=== PATIENT | female | born 1945 | race Caucasian/White ===

== ENCOUNTER → 2019-02-11 | Outpatient (CLI) | payer MEDICARE, BC ==
[2019-02-11 10:20] VITALS: BP 127/78; PULSE 93; RESP 18; TEMP 98.2; BMI 31.7
--- NOTE | 2019-02-11 11:05 | P.GSHP ---
History of Present Illness H&P Date: 02/11/19 Chief Complaint: rash under left breast The patient is a 74-year-old white female who presents with a complaint of a rash under her left breast. She states the rash was persistent for approximately 6-7 months. She treated with calamine lotion, baking soda, pHisoHex, and finally was seen by her primary care physician where she was given nystatin. Despite the nystatin it did not resolve and she treated it with Chlortrimazole. Following the clotrimazole the itching stopped and the rash has resolved. She denies any thickening of the skin. Of importance is the fact that she is status post right mastectomy approximately 13 years ago. She does not complain of any lumps or masses in her left breast. Following the mastectomy she did not have any chemo or radiation therapy but she was on tamoxifen for 5 years. She did have reconstruction. She also had a reduction and lift of the left breast. Her last mammogram was in approximately March 2018 at [facility] and she states she was told that this was okay. Family history: 1. Patient right breast cancer 2. Multiple uterine cancer 3. Maternal cousin breast cancer Hormonal history: Menarche: 12 2 miscarriages,s, first born at 30 Menopause: Partial hysterectomy of 15 control pills: 2 years Hormones: 5 years Past surgical history: 1. Partial hysterectomy 2. Tonsillectomy 3. Appendectomy 4. 5. Umbilical hernia repair 6. Bilateral thumb surgery 7. Bilateral knee surgery 8. LAP-BAND 9. Ankle cyst Medical history: Type 1 diabetes 2 hypertension 3 high cholesterol Social history: Smoke: Negative Alcohol: Occasional Drugs: Negative - Constitutional Constitutional: Denies chills, Denies fever - EENT Eyes: denies blurred vision, denies pain Ears: bilateral: decreased hearing, tinnitus Ears, nose, mouth and throat: Denies headache, Denies sore throat - Breasts Breasts: bilateral: as per HPI - Cardiovascular Cardiovascular: Reports high blood pressure, Denies chest pain, Denies shortness of breath - Respiratory Respiratory: Denies cough, Denies 7 - Gastrointestinal Gastrointestinal: Denies abdominal pain, Denies diarrhea, Denies nausea, Denies vomiting - Genitourinary (Female) Genitourinary: Denies dysuria, Denies hematuria - Menstruation Menstruation: Reports post hysterectomy - Musculoskeletal Comment: Osteoarthritis - Integumentary Comment: rash under left breast resolved - Neurological Neurological: Denies numbness, Denies weakness - Psychiatric Psychiatric: Denies anxiety, Denies depression - Endocrine Comment: Diabetes - Hematologic/Lymphatic Comment: fish oil - Allergic/Immunologic Allergic/Immunologic: Reports seasonal allergies Past Medical History Past Medical History: Cancer, Diabetes Mellitus, Hypertension, Osteoarthritis (OA) Additional Past Medical History / Comment(s): hx. breast cancer 2006 History of Any Multi-Drug Resistant Organisms: None Reported Past Surgical History: Appendectomy, Bariatric Surgery, Breast Surgery, Section, Hernia Repair, Hysterectomy, Joint Replacement, Orthopedic Surgery, Tonsillectomy Additional Past Surgical History / Comment(s): right mastectomy & reconstruction, both knees replaced, lap band, D & C's, anal fissure repaired, cyst removed right ankle, left thumb surg. Past Anesthesia/Blood Transfusion Reactions: No Reported Reaction Past Psychological History: No Psychological Hx Reported Smoking Status: Unknown if ever smoked Past Alcohol Use History: None Reported Past Drug Use History: None Reported - Past Family History Mother Family Medical History: Cancer Medications and Allergies Home Medications Medication Instructions Recorded Confirmed Type Airborne 1 tab PO DAILY 02/12/16 02/11/19 History Calcium Carbonate/Vitamin D3 1 each PO DAILY 02/12/16 02/11/19 History [Calcium 600-Vit D3 400 Caplet] Cholecalciferol [Vitamin D3] 1,000 unit PO DAILY 02/12/16 02/11/19 History Glucosam/Shawn-Msm1/C/Singh/Bosw 1 each PO DAILY 02/12/16 02/11/19 History [Glucosamine-Chondroitin Tablet] Losartan Potassium [Cozaar] 50 mg PO DAILY 02/12/16 02/11/19 History Multivit with Calcium,Iron,Min 1 each PO DAILY 02/12/16 02/11/19 History [Women's Daily Multivitamin] Naproxen Sodium [Aleve] 220 mg PO DAILY 02/12/16 02/11/19 History metFORMIN HCL [Metformin HCl ER] 500 mg PO HS 02/12/16 02/11/19 History Atorvastatin [Lipitor] 10 mg PO HS 02/11/19 02/11/19 History Ranger-3/Dha/Epa/Fish Oil [Fish Oil 1 each PO DAILY 02/11/19 02/11/19 History 500 mg Softgel] Allergies Allergy/AdvReac Type Severity Reaction Status Date / Time TEODORO Inhibitors AdvReac Cough Unverified 02/11/19 09:54 Surgical - Exam Vital Signs Temp Pulse Resp BP Pulse Ox 98.2 F 93 18 127/78 97 02/11/19 10:14 02/11/19 10:14 02/11/19 10:14 02/11/19 10:14 02/11/19 10:14 - General well developed, well nourished, no distress - Eyes normal ocular movement - ENT no hearing loss, no congestion - Neck no masses, trachea midline - Respiratory normal respiratory effort, clear to auscultation - Cardiovascular Rhythm: regular Heart Sounds: normal: S1, S2 - Abdomen Abdomen: soft, non tender, no guarding, no rigid, no rebound - Integumentary Under left breast mild erythema according to patient rash has resolved - Neurologic no disoriented, no combative - Musculoskeletal normal gait, normal posture - Psychiatric oriented to time, oriented to person, oriented to place, speech is normal, memory intact Breast examination: Right breast: status post mastectomy with reconstruction no evidence of recurrent cancer Right insular: No adenopathy of concern Left breast: Fibrocystic changes inferior to the left breast is some mild pinkness of the skin which the where thepatient states a rash has resolved she has no itching at this site there is no definite rash of concern Multi-positional examination no dominant masses or nodules of concern Left axilla: No adenopathy of concern Assessment and Plan Assessment: Impression: 1. Type 1 diabetes 2 hypertension 3 high cholesterol 4. Resolved rash under her left breast, uncertain of the etiology 5. Personal history of right breast cancer with mastectomy and reconstruction, no evidence of recurrence 6. Family history of breast cancer 7. Fibrocystic breast changes 8. Family history of cancer mother: Uterine cancer Plan: 1. Close surveillance status post right mastectomy for cancer she is due for left mammogram she will have this performed at [facility] us if there is anything of concern she will see me immediately 2. The fashion of the left breast is resolved she will call if this recurs 3. Follow-up appointment here in the spring when she returns from [place] 4. Medical management of medical conditions CC: DR. Camp
== END ==
LOC: WWCWWP 09:39
PROVIDERS: ATTEND Surgery
DX: Z53.9 Procedure and treatment not carried out, unspecified reason (principal)

== ENCOUNTER 2019-11-13 21:24 | Emergency (ER) | payer MEDICARE, BC ==
[2019-11-13 21:35] VITALS: RESP 16
[2019-11-13] MEDS ORDERED: MORPHINE SULFATE 4 MG/ML SYRINGE IV STA (21:59)
--- NOTE | 2019-11-13 22:28 | XR ---
EXAMINATION TYPE: XR chest 1V portable DATE OF EXAM: 11/13/2019 COMPARISON: 05/17/2013 HISTORY: Chest pain TECHNIQUE: FINDINGS: There is no heart failure nor confluent pneumonic infiltrate. Costophrenic angles are clear . There are chest leads. There is mild atheromatous change in the thoracic aorta. IMPRESSION: No active cardiopulmonary disease. No change.
[2019-11-13 22:42] LABS: Basophils % (A) 0 %; Eosinophils # (A) 0.1 k/uL (0-0.7); Eosinophils % (A) 1 %; HCT 40.5 % (34.0-46.0); HGB 12.9 gm/dL (11.4-16.0); Lymphocytes # (A) 1.2 k/uL (1.0-4.8); Lymphocytes % (A) 13 %; MCH 27.5 pg (25.0-35.0); MCHC 31.9 g/dL (31.0-37.0); MCV 86.4 fL (80.0-100.0); Mean Platelet Volume 7.4; Monocytes # (A) 0.4 k/uL (0-1.0); Monocytes % (A) 4 %; Neutrophils # (A) 7.6 k/uL (1.3-7.7); Neutrophils % (A) 81 %; Platelet Count 279 k/uL (150-450); RBC 4.69 m/uL (3.80-5.40); RDW 14.1 % (11.5-15.5); WBC 9.3 k/uL (3.8-10.6)
[2019-11-13] MEDS ORDERED: ONDANSETRON 4 MG/2 ML VIAL IVP STA (22:42)
[2019-11-13 22:53] LABS: INR 0.9 (<1.2); Partial Thromboplastin Time 24.8 sec (22.0-30.0); Prothrombin Time 9.6 sec (9.0-12.0)
[2019-11-13 23:00] LABS: ALT 20 U/L (4-34); AST 24 U/L (14-36); African American GFR (CKD) >90 (>60 ml/min/1.73 sqM); Albumin 4.2 g/dL (3.5-5.0); Alkaline Phosphatase 90 U/L (38-126); Anion Gap 11 mmol/L; Blood Urea Nitrogen 22 mg/dL (7-17); Calcium 9.6 mg/dL (8.4-10.2); Carbon Dioxide 23 mmol/L (22-30); Chloride 104 mmol/L (98-107); Glucose 250 mg/dL (74-99); Magnesium 1.8 mg/dL (1.6-2.3); Non-African American GFR(CKD) 88 (>60 ml/min/1.73 sqM); Potassium 4.1 mmol/L (3.5-5.1); Sodium 138 mmol/L (137-145); Total Bilirubin 0.5 mg/dL (0.2-1.3); Total Protein 6.9 g/dL (6.3-8.2)
[2019-11-13] MEDS ORDERED: HYDROmorphone 0.5 MG/0.5 ML SYRINGE IVP STA (23:10)
--- NOTE | 2019-11-13 23:35 | ED ---
General Adult HPI - General Chief complaint: Chest Pain Stated complaint: Upper abdominal pain Time Seen by Provider: 11/13/19 21:28 Source: patient, EMS, RN notes reviewed, old records reviewed Mode of arrival: EMS Limitations: no limitations - History of Present Illness Initial comments: 74-year-old female patient presents to ED for chief complaint of epigastric abdominal pain. Patient does report that she has a history of a gastric sleeve. This was 14 years ago. Patient reports that she ate a large and fatty meal. Patient reports that she then began experiencing epigastric abdominal pain. Patient reports that the pain radiates to her back. Also reports that the pain went to her flanks bilaterally. She reports that she felt nauseous, but she had no emesis. She states that this does happen her when she eats large meals with her gastric sleeve however the pain felt different. She states this began at approximately 7pm. Patient was transferred by [facility] where they administered 3 nitro without any relief of pain. Also administered aspirin 325. Patient denies any shortness of breath. Denies any anterior chest pain. Denies any prior cardiac history. Denies any other complaints. Systemic: Pt denies fatigue, fever/chills, rash. Pt denies weakness, night sweats, weight loss. Neuro: Pt denies headache, visual disturbances, syncope or pre-syncope. HEENT: Pt denies ocular discharge or irritation, otalgia, rhinorrhea, pha ryngitis or notable lymphadenopathy. Cardiopulmonary: Pt denies chest pain, SOB, heart palpitations, dyspnea on exertion. : Pt denies dysuria, burning w/ urination, frequency/urgency. Denies new onset urinary or bowel incontinence. MSK: Pt denies myalgia, loss of strength or function in extremities. Neuro: Pt denies new onset weakness, paresthesias. - Related Data Home Medications Medication Instructions Recorded Confirmed Airborne 1 tab PO DAILY 02/12/16 02/11/19 Calcium Carbonate/Vitamin D3 1 each PO DAILY 02/12/16 02/11/19 [Calcium 600-Vit D3 400 Caplet] Cholecalciferol [Vitamin D3] 1,000 unit PO DAILY 02/12/16 02/11/19 Glucosam/Shawn-Msm1/C/Singh/Bosw 1 each PO DAILY 02/12/16 02/11/19 [Glucosamine-Chondroitin Tablet] Losartan Potassium [Cozaar] 50 mg PO DAILY 02/12/16 02/11/19 Multivit with Calcium,Iron,Min 1 each PO DAILY 02/12/16 02/11/19 [Women's Daily Multivitamin] Naproxen Sodium [Aleve] 220 mg PO DAILY 02/12/16 02/11/19 metFORMIN HCL [Metformin HCl ER] 500 mg PO HS 02/12/16 02/11/19 Atorvastatin [Lipitor] 10 mg PO HS 02/11/19 02/11/19 Radom-3/Dha/Epa/Fish Oil [Fish Oil 1 each PO DAILY 02/11/19 02/11/19 500 mg Softgel] Allergies Allergy/AdvReac Type Severity Reaction Status Date / Time TEODORO Inhibitors AdvReac Cough Verified 11/13/19 22:20 Review of Systems ROS Statement: Those systems with pertinent positive or pertinent negative responses have been documented in the HPI. ROS Other: All systems not noted in ROS Statement are negative. Past Medical History Past Medical History: Cancer, Diabetes Mellitus, Hypertension, Osteoarthritis (OA) Additional Past Medical History / Comment(s): hx. breast cancer 2006 History of Any Multi-Drug Resistant Organisms: None Reported Past Surgical History: Appendectomy, Bariatric Surgery, Breast Surgery, Section, Hernia Repair, Hysterectomy, Joint Replacement, Orthopedic Surgery, Tonsillectomy Additional Past Surgical History / Comment(s): right mastectomy & reconstruction, both knees replaced, lap band, D & C's, anal fissure repaired, cyst removed right ankle, left thumb surg. Past Anesthesia/Blood Transfusion Reactions: No Reported Reaction Past Psychological History: No Psychological Hx Reported Smoking Status: Never smoker Past Alcohol Use History: None Reported Past Drug Use History: None Reported - Past Family History Mother Family Medical History: Cancer General Exam - General Exam Comments Initial Comments: Constitutional: NAD, AOX3, Pt has pleasant affect. HEENT: NC/AT, trachea midline, neck supple, no lymphadenopathy. Posterior pharynx non erythematous, without exudates. External ears appear normal, without discharge. Mucous membranes moist. Eyes PERRLA, EOM intact. There is no scleral icterus. No pallor noted. Cardiopulmonary: RRR, no murmurs, rubs or gallops, no JVD noted. Lungs CTAB in anterior and posterior lay. No peripheral edema. Abdominal exam: Abdomen soft and non-distended. Abdomen moderately tender to palpation epigastric right upper quadrant and left upper quadrant region. Bowel sounds active in LLQ. No hepatosplenomegaly. No ecchymosis Neuro: CN II-XII grossly intact. No nuchal rigidity. No raccon eyes, no bruno sign, no hemotympanum. No cervical spinal tenderness. MSK: No posterior calf tenderness bilaterally, homans sign negative bilaterally. Posterior tibialis and radial pulse +2 bilaterally. Sensation intact in upper and lower extremities. Full active ROM in upper and lower extremities, 5/5 stregnth. Limitations: no limitations Course Vital Signs 11/13/19 11/13/19 11/13/19 21:30 21:35 22:00 Temperature 97.2 F L Pulse Rate 89 98 Pulse Rate [ 89 Malt House Loader ] Respiratory 16 16 Rate Blood Pressure 134/76 157/70 O2 Sat by Pulse 97 98 Oximetry 11/13/19 11/14/19 11/14/19 23:00 00:00 01:00 Temperature 97.8 F Pulse Rate 88 86 91 Pulse Rate [ Malt House Loader ] Respiratory 16 16 16 Rate Blood Pressure 158/76 156/72 158/74 O2 Sat by Pulse 95 96 95 Oximetry Medical Decision Making - Medical Decision Making 74-year-old female patient presents to ED for chief complaint of epigastric abdominal pain. Patient does report that she has a history of a gastric sleeve. This was 14 years ago. Patient reports that she ate a large and fatty meal. Patient reports that she then began experiencing epigastric abdominal pain. Patient reports that the pain radiates to her back. Also reports that the pain went to her flanks bilaterally. She reports that she felt nauseous, but she had no emesis. She states that this does happen her when she eats large meals with her gastric sleeve however the pain felt different. She states this began at approximately 7pm. Patient was transferred by [facility] where they administered 3 nitro without any relief of pain. Also administered aspirin 325. Patient denies any shortness of breath. Denies any anterior chest pain. Denies any prior cardiac history. Denies any other complaints. Patient vital signs are stable, afebrile. Physical exam displayed upper abdominal tenderness. Laboratory investigations were obtained. These are non-impressive. Troponin is negative. Blood sugar is elevated at 250. EKG is nonischemic. CT chest angiography was obtained, this did display some interstitial infiltrate and atelectasis at the posterior lower lung lay. Multiple hepatic cysts. Patient not having any cough. Ct abdomen pelvis displayed multiple small hepatic cysts. Bariatric surgery. Possible large gallstone in the gallbladder neck. Mild small bowel mesenteric edema and adenopathy of uncertain significance. No small bowel abnormalities seen. No bowel obstruction. Sigmoid diverticulosis without diverticulitis. EKG is nonischemic. Patient is feeling much improved. I do believe the patient's symptoms are likely related to biliary colic as she began to experience the upper abdominal pain after she had a large meal. Patient will be discharged outpatient primary care and general surgery follow-up. All findings on imaging were discussed with patient. Case discussed in depth with Dr. Morgan. - Lab Data Result diagrams: 11/13/19 21:44 11/13/19 21:44 Lab Results 11/13/19 11/13/19 11/13/19 Range/Units 21:44 21:44 21:44 WBC 9.3 (3.8-10.6) k/uL RBC 4.69 (3.80-5.40) m/uL Hgb 12.9 (11.4-16.0) gm/dL Hct 40.5 (34.0-46.0) % MCV 86.4 (80.0-100.0) fL MCH 27.5 (25.0-35.0) pg MCHC 31.9 (31.0-37.0) g/dL RDW 14.1 (11.5-15.5) % Plt Count 279 (150-450) k/uL Neutrophils % 81 % Lymphocytes % 13 % Monocytes % 4 % Eosinophils % 1 % Basophils % 0 % Neutrophils # 7.6 (1.3-7.7) k/uL Lymphocytes # 1.2 (1.0-4.8) k/uL Monocytes # 0.4 (0-1.0) k/uL Eosinophils # 0.1 (0-0.7) k/uL Basophils # 0.0 (0-0.2) k/uL PT 9.6 (9.0-12.0) sec INR 0.9 (<1.2) APTT 24.8 (22.0-30.0) sec Sodium 138 (137-145) mmol/L Potassium 4.1 (3.5-5.1) mmol/L Chloride 104 (98-107) mmol/L Carbon Dioxide 23 (22-30) mmol/L Anion Gap 11 mmol/L BUN 22 H (7-17) mg/dL Creatinine 0.65 (0.52-1.04) mg/dL Est GFR (CKD-EPI)AfAm >90 (>60 ml/min/1.73 sqM) Est GFR (CKD-EPI)NonAf 88 (>60 ml/min/1.73 sqM) Glucose 250 H (74-99) mg/dL Calcium 9.6 (8.4-10.2) mg/dL Magnesium 1.8 (1.6-2.3) mg/dL Total Bilirubin 0.5 (0.2-1.3) mg/dL AST 24 (14-36) U/L ALT 20 (4-34) U/L Alkaline Phosphatase 90 (38-126) U/L Troponin I (0.000-0.034) ng/mL NT-Pro-B Natriuret Pep pg/mL Total Protein 6.9 (6.3-8.2) g/dL Albumin 4.2 (3.5-5.0) g/dL Lipase 83 (23-300) U/L 11/13/19 11/13/19 Range/Units 21:44 21:44 WBC (3.8-10.6) k/uL RBC (3.80-5.40) m/uL Hgb (11.4-16.0) gm/dL Hct (34.0-46.0) % MCV (80.0-100.0) fL MCH (25.0-35.0) pg MCHC (31.0-37.0) g/dL RDW (11.5-15.5) % Plt Count (150-450) k/uL Neutrophils % % Lymphocytes % % Monocytes % % Eosinophils % % Basophils % % Neutrophils # (1.3-7.7) k/uL Lymphocytes # (1.0-4.8) k/uL Monocytes # (0-1.0) k/uL Eosinophils # (0-0.7) k/uL Basophils # (0-0.2) k/uL PT (9.0-12.0) sec INR (<1.2) APTT (22.0-30.0) sec Sodium (137-145) mmol/L Potassium (3.5-5.1) mmol/L Chloride (98-107) mmol/L Carbon Dioxide (22-30) mmol/L Anion Gap mmol/L BUN (7-17) mg/dL Creatinine (0.52-1.04) mg/dL Est GFR (CKD-EPI)AfAm (>60 ml/min/1.73 sqM) Est GFR (CKD-EPI)NonAf (>60 ml/min/1.73 sqM) Glucose (74-99) mg/dL Calcium (8.4-10.2) mg/dL Magnesium (1.6-2.3) mg/dL Total Bilirubin (0.2-1.3) mg/dL AST (14-36) U/L ALT (4-34) U/L Alkaline Phosphatase (38-126) U/L Troponin I <0.012 (0.000-0.034) ng/mL NT-Pro-B Natriuret Pep 50 pg/mL Total Protein (6.3-8.2) g/dL Albumin (3.5-5.0) g/dL Lipase (23-300) U/L - EKG Data -: EKG Interpreted by Me (and Dr. Morgan ) EKG Comments: Ventricular rate 88, ME interval 144, QRS 90, QT/QTC 394/476. Normal sinus rhythm, normal EKG, no concern for acute ischemia. Disposition Clinical Impression: Abdominal pain, Gallstone Disposition: HOME SELF-CARE Condition: Stable Instructions (If sedation given, give patient instructions): Abdominal Pain (ED) Additional Instructions: Follow-up with primary care provider tomorrow as well as general surgeon. Return to ER if condition worsens in any way. Is patient prescribed a controlled substance at d/c from ED?: No Referrals: Rahul Camp DO [Primary Care Provider] - 1-2 days Karely Garnett DO [Doctor of Osteopathic Medicine] - 1-2 days
[2019-11-13] MEDS ORDERED: SODIUM CHLORIDE 0.9% 1,000 ML IV ONE (23:39)
--- NOTE | 2019-11-13 23:55 | CT ---
EXAMINATION TYPE: CT chest angio for PE DATE OF EXAM: 11/13/2019 COMPARISON: None HISTORY: Chest pain CT DLP: 1620.9 mGycm Automated exposure control for dose reduction was used. CONTRAST: Performed with IV Contrast, patient injected with 100 mL of Isovue 370. There are 3-D post processed images. There is right breast implant. There is no sign of mediastinal adenopathy. Thoracic aorta is intact. There is no aneurysm or dissection. There are no hilar masses. Heart size is fairly normal. There is no pericardial effusion. There is no pleural effusion. There is some interstitial infiltrate and subs egmental atelectasis at the posterior lung bases. There are a few hypodense lesions in the visualized liver that measure up to 2 cm. These show no delayed enhancement and have low attenuation on delayed images consistent with cysts. There are small calcified granulomata in the liver also. There is xavi lacy bariatric surgery noted. There is normal contrast opacification of the pulmonary arteries. I see no filling defects. There are no hilar masses. There is some spurring in the thoracic spine. Bony thorax appears intact. IMPRESSION: No evidence of pulmonary embolism. There are some interstitial infiltrates and atelectasis at the pos terior lower lung lay. Multiple hepatic cysts.
--- NOTE | 2019-11-14 00:19 | CT ---
EXAMINATION TYPE: CT abdomen pelvis w con DATE OF EXAM: 11/13/2019 COMPARISON: None HISTORY: Chest pain epigastric pain CT DLP: 1620.9 mGycm Automated exposure control for dose reduction was used. CONTRAST: Performed with IV Contrast, patient injected with 100 mL of Isovue 370. There is right breast implant. There is mild atelectasis right lung base. There is no pleural effusio n. There is no pericardial effusion. Thoracic aorta is atheromatous. There is gastric sleeve noted. There are multiple cysts in the liver that measure up to 2 cm. The nicole e ducts are not dilated. Gallbladder distends smoothly. There is possible 3 cm cholesterol stone at t he gallbladder neck. There is no evidence of pancreatic mass. Spleen is intact. There is no adrenal mass. Kidneys show satisfactory contrast opacification. There is no retroperitone al adenopathy. Ureters are not dilated. There are multiple diverticula in the sigmoid colon. There is no evidence of diverticulitis. Ladder distends smoothly. There is no inguinal hernia. There is no fr ee fluid in the pelvis. Appendix is not seen. There is no sign of thickened appendix. There is no bowel obstruction. There is no ascites or free air. There is mild increased density in th e small bowel mesentery. There are some enlarged small bowel mesenteric lymph nodes that measure up t o 3 x 1.5 cm. Lumbar vertebra have normal alignment. Disc spaces are fairly normal. Posterior elements are intact. There is no compression fracture. Facet joints are intact. Bony pelvis is intact. Abdominal aorta is atheromatous. IMPRESSION: Mild interstitial infiltrate and subsegmental atelectasis at the lung bases. Multiple small hepatic cysts. Bariatric surgery. Possible large gallstone in the gallbladder neck. Mild small bowel mesenteric edema and adenopathy of uncertain significance. No small bowel abnormalit ies seen. No bowel obstruction. Atherosclerotic vascular disease. Sigmoid diverticulosis without diverticulitis.
[2019-11-14 01:40] VITALS: BP 158/74; PULSE 91; TEMP 97.8
[2019-11-14] MEDS ORDERED: ACET/COD 300 MG/30 MG STARTER PACK 6 TAB BTL PO STA (01:59)
== END 2019-11-14 02:05 | disposition home or self-care (01) ==
LOC: EC 21:24
DX: K80.20 Calculus of gallbladder without cholecystitis without obstruction (principal); K76.89 Other specified diseases of liver; K57.30 Diverticulosis of large intestine without perforation or abscess without bleeding; E11.9 Type 2 diabetes mellitus without complications; I10 Essential (primary) hypertension; M19.90 Unspecified osteoarthritis, unspecified site; Z79.84 Long term (current) use of oral hypoglycemic drugs; Z79.899 Other long term (current) drug therapy; Z88.8 Allergy status to other drugs, medicaments and biological substances; Z90.49 Acquired absence of other specified parts of digestive tract; Z90.710 Acquired absence of both cervix and uterus; Z90.11 Acquired absence of right breast and nipple; Z96.653 Presence of artificial knee joint, bilateral
CPT/HCPCS: 36415; 93005; 83880; 80053; 83690; 83735; 84484; 85025; 85610; 85730; 71045; 71275; 74177; 99285; 96374; 96375 ×2; 96361; J2270; J2405; J1170; Q9967

== ENCOUNTER → 2019-12-24 | Day surgery (SDC) | payer MEDICARE, BC ==
[2019-12-23 09:41] VITALS: BMI 31.1
[~2019-12-24] MED LIST: ACETAMINOPHEN TAB 500 MG TAB ONE; ACETAMINOPHEN TAB 500 MG TAB PO ONE; BUPIVACAIN-EPI 0.25%-1:200,000 30 ML VIAL SQ ONE; DEXAMETHASONE SOD PHOSPHATE 10 MG/ML 1 ML VIAL IV ONE; GABAPENTIN 300 MG CAP PO ONE; GLYCOPYRROLATE 0.2 MG/ML 2 ML VIAL ONE; HEPARIN SODIUM,PORCINE 5,000 UNIT/ML 1 ML VIAL ONE; HEPARIN SODIUM,PORCINE 5,000 UNIT/ML 1 ML VIAL SQ ONE; HYDROcodone/APAP 5-325MG 1 EACH TAB ONE; HYDROcodone/APAP 5-325MG 1 EACH TAB PO ONE; HYDROmorphone 0.5 MG/0.5 ML SYRINGE IVP ONE; INDOCYANINE GREEN 25 MG VIAL IV ONE; LACTATED RINGERS 1,000 ML IV ONE; LACTATED RINGERS 1,000 ML IV SCH; LIDOCAINE 1% INJ 10MG/ML (20 ML MDV) ONE; MIDAZOLAM 2 MG/2 ML VIAL IV PRN; MIDAZOLAM 2 MG/2 ML VIAL ONE; NEOSTIGMINE 1 MG/ML 10 ML VIAL ONE; ONDANSETRON 4 MG/2 ML VIAL IVP ONE; ONDANSETRON 4 MG/2 ML VIAL ONE; PROPOFOL 10 MG/ML 20 ML VIAL IV ONE; ROCURONIUM BROMIDE 10 MG/ML 5 ML VIAL IV ONE; SUCCINYLCHOLINE CHLORIDE 100 MG/5 ML SYR IV ONE; TAMSULOSIN 0.4 MG CAP.ER.24H PO ONE; fentaNYL (PF) 50 MCG/ML 2 ML AMP IV PRN; fentaNYL (PF) 50 MCG/ML 2 ML AMP ONE
--- NOTE | 2019-12-24 06:18 | P.GSHP ---
History of Present Illness H&P Date: 12/24/19 CHIEF COMPLAINT: Cholecystitis HISTORY OF PRESENT ILLNESS: The patient is a 74-year-old female who presents with history of epigastric including right upper quadrant abdominal pain. She underwent diagnostic studies for her gallbladder. Separately her clinical picture was consistent with cholecystitis. Now she presents for surgical intervention. PAST MEDICAL HISTORY: Please see list PAST SURGICAL HISTORY: Please see list MEDICATIONS: Please see list ALLERGIES: Please see list SOCIAL HISTORY: Please see list FAMILY HISTORY: Please see list REVIEW OF ORGAN SYSTEMS: CONSTITUTIONAL: No reports of fevers or chills. HEENT: Denies any troubles with the vision or hearing. PHYSICAL EXAM: VITAL SIGNS: Afebrile vital signs stable GENERAL: Well-developed pleasant in no acute distress. HEENT: No scleral icterus. Extraocular movements grossly intact. Moist buccal mucosa. NECK: Supple without lymphadenopathy. CHEST: Unlabored respirations. Equal bilateral excursions. CARDIOVASCULAR: Regular rate regular rhythm rhythm. Distal 2+ pulses. ABDOMEN: Soft, nondistended. Tender along the epigastrium and right upper quadrant. MUSCULOSKELETAL: No clubbing, cyanosis, or edema. NEURO: Cranial nerves II to XII within normal limits. No focal or lateralizing signs. PSYCH: Alert and oriented to person, place and time. SKIN: Well-perfused good skin turgor. ASSESSMENT: 1. Epigastric and right upper quadrant abdominal pain 2. Chronic cholecystitis 3. Symptomatic gallstones. PLAN: 1. Will need a robotic cholecystectomy possible open. Benefits and risks were described. 2. Heparin for DVT prophylaxis 5000 units. 3. Antibiotic prophylaxis. Past Medical History Past Medical History: Cancer, Diabetes Mellitus, Hypertension, Osteoarthritis (OA) Additional Past Medical History / Comment(s): gall stones, hx. breast cancer 2005-no radiation or chemo History of Any Multi-Drug Resistant Organisms: None Reported Past Surgical History: Appendectomy, Bariatric Surgery, Breast Surgery, Section, Hernia Repair, Hysterectomy, Joint Replacement, Orthopedic Surgery, Tonsillectomy Additional Past Surgical History / Comment(s): right mastectomy & reconstruction, both knees replaced, lap band-fluid present, D & C's, anal fissure repaired, cyst removed right ankle, nicole thumb surg and carpel tunnel,nicole cataracts Past Anesthesia/Blood Transfusion Reactions: No Reported Reaction Additional Past Anesthesia/Blood Transfusion Reaction / Comment(s): no hx blood transfusion Smoking Status: Never smoker - Past Family History Mother Family Medical History: Cancer Medications and Allergies Home Medications Medication Instructions Recorded Confirmed Type Airborne 1 tab PO DAILY 02/12/16 12/23/19 History Calcium Carbonate/Vitamin D3 1 each PO DAILY 02/12/16 12/23/19 History [Calcium 600-Vit D3 400 Caplet] Cholecalciferol [Vitamin D3] 1,000 unit PO DAILY 02/12/16 12/23/19 History Glucosam/Shawn-Msm1/C/Singh/Bosw 1 each PO DAILY 02/12/16 12/23/19 History [Glucosamine-Chondroitin Tablet] Multivit with Calcium,Iron,Min 1 each PO DAILY 02/12/16 12/23/19 History [Women's Daily Multivitamin] Naproxen Sodium [Aleve] 220 mg PO DAILY PRN 02/12/16 12/23/19 History metFORMIN HCL [Metformin HCl ER] 500 mg PO BID 02/12/16 12/23/19 History Atorvastatin [Lipitor] 10 mg PO HS 02/11/19 12/23/19 History [place]-3/Dha/Epa/Fish Oil [Fish Oil 1 each PO DAILY 02/11/19 12/23/19 History 500 mg Softgel] Zzz-Quil Nighttime Sleepaide 0.5 tab PO HS PRN 12/23/19 12/23/19 History amLODIPine [Norvasc] 5 mg PO QAM 12/23/19 12/23/19 History sitaGLIPtin PHOSPHATE [Januvia] 100 mg PO 1200 12/23/19 12/23/19 History Allergies Allergy/AdvReac Type Severity Reaction Status Date / Time TEODORO Inhibitors AdvReac Cough Verified 12/23/19 09:21 morphine AdvReac one time Verified 12/23/19 09:40 nausea immediate after IVP
[2019-12-24 06:33] LABS: Glucose,Whole Blood 146 mg/dL (75-99)
[2019-12-24 06:39] LABS: HCT 40.7 % (34.0-46.0); HGB 13.2 gm/dL (11.4-16.0); MCH 28.2 pg (25.0-35.0); MCHC 32.5 g/dL (31.0-37.0); MCV 86.9 fL (80.0-100.0); Mean Platelet Volume 7.2; Platelet Count 283 k/uL (150-450); RBC 4.68 m/uL (3.80-5.40); RDW 14.7 % (11.5-15.5); WBC 6.5 k/uL (3.8-10.6)
[2019-12-24 07:40] LABS: ALT 23 U/L (4-34); AST 23 U/L (14-36); African American GFR (CKD) >90 (>60 ml/min/1.73 sqM); Albumin 4.4 g/dL (3.5-5.0); Alkaline Phosphatase 81 U/L (38-126); Anion Gap 7 mmol/L; Blood Urea Nitrogen 17 mg/dL (7-17); Calcium 9.5 mg/dL (8.4-10.2); Carbon Dioxide 27 mmol/L (22-30); Chloride 106 mmol/L (98-107); Glucose 147 mg/dL (74-99); Non-African American GFR(CKD) 86 (>60 ml/min/1.73 sqM); Potassium 4.2 mmol/L (3.5-5.1); Sodium 140 mmol/L (137-145); Total Bilirubin 0.6 mg/dL (0.2-1.3)
[2019-12-24 09:24] VITALS: TEMP 97
--- NOTE | 2019-12-24 10:03 | P.OP ---
Date of Procedure: 12/24/19 Description of Procedure: SURGEON: ARACELY DOYLE MD PREOPERATIVE DIAGNOSES: 1. Symptomatic gallstones 2. Diabetes type 2, [id number] 3. Hypertensive heart disease 4. Obesity due to excess calories, BMI 31.7 5. History of adjustable gastric band 6. Hyperlipidemia 7. History of right breast cancer, status post reconstruction POSTOPERATIVE DIAGNOSES: 1. Symptomatic gallstones 2. Diabetes type 2, [id number] 3. Hypertensive heart disease 4. Obesity due to excess calories, BMI 31.7 5. History of adjustable gastric band 6. Hyperlipidemia 7. Peritoneal adhesions right upper quadrant, epigastric 8. History of right breast cancer, status post reconstruction OPERATION: 1. Robotic-assisted da Janie Xi laparoscopic extensive lysis of adhesions, over 1.5 hrs 2. Robotic-assisted da Janie Xi laparoscopic cholecystectomy, multiport with FIREFLY ESTIMATED BLOOD LOSS: 30 mL. SPECIMENS REMOVED: Gallbladder. COMPLICATIONS: None. OPERATIVE FINDINGS: 1. Severe peritoneal adhesions epigastrium and right upper quadrant 2. Adjustable gastric band intact with moderate adhesions 3. Proximal transverse colon adherent to the gallbladder fundus lysed 4. Short cystic duct identified with FIREFLY INDICATIONS: The patient is a 74-year-old female who presents with symptomatic gallstones. Patient reports taking her supplements within the last 24-48 hours. Increased risks of bleeding were described. Patient wished to proceed. Surgical intervention with a laparoscopic cholecystectomy was described. Robotic assisted laparoscopic approach was described. Benefits and risks of the procedure including but not limited to bleeding, infection, injury to the biliary tree was described. Informed consent was obtained. DESCRIPTION OF PROCEDURE: Patient was brought to the operating room, placed in supine position. After general induction, the abdomen had been prepped and draped in standard sterile fashion. The robotic da Janie XI system was primed. After a timeout protocol was performed, the patient had been prepped and draped in standard sterile fashion. The patient was injected with indocyanine green. A 5 mm 0 degrees laparoscopic trocar entry was performed along the left upper quadrant. The abdomen insufflated to 15 mmHg pressure which was tolerated well. Diagnostic laparoscopy demonstrated no injury to bowel viscera or mesentery. The liver surface was unremarkable. Next, two 8 mm robotic ports were placed along the right upper abdomen. The camera 8-mm port was maintained along the epigastrium. Another 8 mm port was placed along the left upper abdominal wall after exchanging the 5 mm port. Please note that the ports were placed at least 10 to 15 cm away from the target anatomy of the gallbladder. The robot was docked along the left lateral abdomen. The patient was repositioned in reverse Trendelenburg position. Using a grasper for arm 3, a grasper for arm 4, including hook cautery for arm 1, the robotic system was docked and primed as described. Instruments were interchanged by the medical assistant dermatology including hook cautery, Bovie cautery and clip appliers. I had sat at the console. Moderate adhesions were identified along the epigastrium and right upper quadrant. Blunt dissection including hook cautery was used to release adhesions initially of the gallbladder fundus to the transverse colon. Additionally, extensive adhesions were identified throughout the gallbladder body and fundus including right upper quadrant necessitating over 1.5 hours of extensive lysis of adhesions. The gallbladder fundus was retracted over the dome of the liver. Initial attention was brought to the infundibulum including cystic lymph node. Initial dissection was performed over the cystic lymph node at the infundibulum using hook cautery. The infundibulum was retracted laterally to expose the cystic duct away from the common bile duct. The cystic duct including the cystic artery were dissected free from its surrounding tissue. FIREFLY was used to identify the cystic artery and cystic structures. A critical view of safety was obtained. Large PLASTIC clips were used throughout the entire case. Using a clip mannequin maker, 2 clips were placed at the junction of the infundibulum and cystic duct. The cystic duct was divided between clips. An accessory arterial vessel was found at the inferior portion of the infundibulum which was controlled using vessel sealer. Electro-Bovie cautery including vessel sealer was used to remove the gallbladder from the hepatic fossa. Hemostasis was checked and found to be adequate. The robot was undocked. I re-scrubbed into the case. Using a 10 mm Endo Catch bag via the left upper quadrant incision, the specimen was removed from the abdominal cavity. No contamination occurred throughout the entire case. The fascia was closed using 0 Vicryl including Morgan Noyola. All pneumoperitoneum instruments were evacuated from the abdominal cavity. The incisions were reapproximated using 4-0 Monocryl in an interrupted subcuticular fashion. Fascial defects were less than 8 mm in size. Please note along the trocar sites, local anesthetic was placed as a field block prior to insertion of all instruments. Liquid glue was applied to the skin. At the end of the procedure needle, sponge, and instrument count had been verified correct by the surgical corsetier. The patient was transferred to postanesthesia care unit in stable condition. Intraoperative films were shared with the patient's family who were pleased with the level of care. Plan - Discharge Summary Discharge Rx Participant: No New Discharge Prescriptions: New Acetaminophen Tab [Tylenol Tab] 1,000 mg PO Q6HR PRN #30 tablet PRN Reason: Pain Continue metFORMIN HCL [metFORMIN HCL ER] 500 mg PO BID Airborne 1 tab PO DAILY Atorvastatin [Lipitor] 10 mg PO HS amLODIPine [Norvasc] 5 mg PO QAM sitaGLIPtin PHOSPHATE [Januvia] 100 mg PO 1200 Zzz-Quil Nighttime Sleepaide 0.5 tab PO HS PRN PRN Reason: sleep Discontinued Naproxen Sodium [Aleve] 220 mg PO DAILY PRN PRN Reason: Pain Cholecalciferol [Vitamin D3] 1,000 unit PO DAILY Multivit with Calcium,Iron,Min [Women's Daily Multivitamin] 1 each PO DAILY Glucosam/Shawn-Msm1/C/Singh/Bosw [Glucosamine-Chondroitin Tablet] 1 each PO DAILY Calcium Carbonate/Vitamin D3 [Calcium 600-Vit D3 400 Caplet] 1 each PO DAILY [place]-3/Dha/Epa/Fish Oil [Fish Oil 500 mg Softgel] 1 each PO DAILY Discharge Medication List Airborne 1 tab PO DAILY 02/12/16 [History] metFORMIN HCL [metFORMIN HCL ER] 500 mg PO BID 02/12/16 [History] Atorvastatin [Lipitor] 10 mg PO HS 02/11/19 [History] Zzz-Quil Nighttime Sleepaide 0.5 tab PO HS PRN 12/23/19 [History] amLODIPine [Norvasc] 5 mg PO QAM 12/23/19 [History] sitaGLIPtin PHOSPHATE [Januvia] 100 mg PO 1200 12/23/19 [History] Acetaminophen Tab [Tylenol Tab] 1,000 mg PO Q6HR PRN #30 tablet 12/24/19 [Rx] Follow up Appointment(s)/Referral(s): Aracely Doyle MD [STAFF PHYSICIAN] - 12/30/19 Patient Instructions/Handouts: *[facility] - Managing Your Pain After Surgery Without Opioids, *[facility] - (Anesthesia) Discharge Instructions Outpatient Surgery, Abdominal Binder (DC), Laparoscopic Cholecystectomy (DC) Activity/Diet/Wound Care/Special Instructions: AVOID IBUPROFEN, ALEVE, ASPIRIN AND SUPPLEMENTS FOR RISK OF BLEEDING. No lifting over 10 pounds in 2 weeks until Jan 03. September shower. No bath tub soaks for two weeks until Jan 03 Diet as tolerated. No driving while on narcotics. Use Tylenol scheduled for the next 24-48 hours for best pain relief. Use ice along incisions for the today to prevent swelling. For today, avoid high fat foods Discharge Disposition: HOME SELF-CARE
[2019-12-24 10:47] VITALS: RESP 17
[2019-12-24 10:53] VITALS: BP 149/78; PULSE 80
== END | disposition home or self-care (01) ==
LOC: OR 05:59
PROVIDERS: ATTEND Surgery Plastic and Reconstructive Surgery
DX: K80.12 Calculus of gallbladder with acute and chronic cholecystitis without obstruction (principal); I11.9 Hypertensive heart disease without heart failure; E78.5 Hyperlipidemia, unspecified; E11.9 Type 2 diabetes mellitus without complications; M19.90 Unspecified osteoarthritis, unspecified site; F32.9 Major depressive disorder, single episode, unspecified; K66.0 Peritoneal adhesions (postprocedural) (postinfection); Z88.5 Allergy status to narcotic agent; Z88.8 Allergy status to other drugs, medicaments and biological substances; Z79.84 Long term (current) use of oral hypoglycemic drugs; Z79.899 Other long term (current) drug therapy; Z85.3 Personal history of malignant neoplasm of breast; Z98.84 Bariatric surgery status; Z90.710 Acquired absence of both cervix and uterus; Z90.89 Acquired absence of other organs; Z98.890 Other specified postprocedural states; Z90.11 Acquired absence of right breast and nipple; Z98.41 Cataract extraction status, right eye; Z98.42 Cataract extraction status, left eye; Z80.9 Family history of malignant neoplasm, unspecified; E66.09 Other obesity due to excess calories; Z68.31 Body mass index [BMI] 31.0-31.9, adult
CPT/HCPCS: 88304; 80053; 85027; 47562; J2250; J1644; J1100; J2710; J0690; J2405; J2001; J3010; J0330; J2704; J1170

== ENCOUNTER → 2021-11-21 | Outpatient (CLI) | payer MEDICARE ==
--- NOTE | 2021-11-21 16:19 | FL ---
EXAMINATION TYPE: FL barium swallow w video DATE OF EXAM: 11/21/2021 MODIFIED SWALLOW / DEGLUTITION STUDY CLINICAL HISTORY: Dysphagia. TECHNIQUE: Deglutition study is performed utilizing thin liquid barium, puree consistency, and bariu m coated cracker. FINDINGS: There is no evidence of laryngeal penetration or aspiration at the time of the study. Total fluoroscopic time 47 seconds. No images on PACS. IMPRESSION: No laryngeal penetration or aspiration. Please refer to speech therapist notes for furthe r details.
== END | disposition home or self-care (01) ==
LOC: RADFLMAIN 10:56
PROVIDERS: ATTEND Family Medicine
DX: R13.10 Dysphagia, unspecified (principal)
CPT/HCPCS: 74230